=== PATIENT | female | born 1975 | race Caucasian/White ===

== ENCOUNTER 2018-08-13 14:53 | Emergency (ER) | payer SELFPAY ==
[~2018-08-13] VITALS: Ht 157.5 cm; Wt 108.0 kg
[~2018-08-13 14:53] MED LIST: AMOXICILLIN500 MG PO; AMOXICILLIN875 MG OR; ATIVAN0.5 MG PO; BACTRIM DS1 TAB PO; CIPRO500 MG OR; CLINDAMYCIN150 MG PO; DARVOCET N-100100 - OR; DOXYCYCL HYC100 M4 PO; FLEXERIL OR; LORTAB 10 PO; MACRODANTIN100 MG PO; METHADONE10 M1 OR; METHADONE10 MG/5 ML PO; MOTRIN400 MG OR; NAPROSYN500 MG OR; NAPROSYN500 MG PO; NO HOME MEDS; OMEPRAZOLE40 MG PO; SOMA350 MG OR; TESSALON PER100 MG PO; ULTRAM50 M1 PO; ULTRAM50 MG OR; ZPAK PO
[2018-08-13 15:44] LABS: URINE BILIRUBIN - DIPSTICK NEGATIVE (NEGATIVE); URINE BLOOD DIPSTICK LARGE (NEGATIVE); URINE GLUCOSE - DIPSTICK NEGATIVE (NEGATIVE); URINE KETONE TRACE mg/dL (NEGATIVE); URINE PROTEIN - DIPSTICK 100 mg/dL (NEG-TRACE); URINE SPECIFIC GRAVITY >=1.030
[2018-08-13 15:49] LABS: URINE CLARITY CLOUDY; URINE COLOR DK. YELLOW; URINE LEUK ESTERASE MODERATE (NEGATIVE); URINE NITRITE - DIPSTICK POSITIVE (Negative)
[2018-08-13] MEDS ORDERED: CIPROFLOXACN500 MG PO (15:52)
[2018-08-13] MEDS ORDERED: TORADOL PO (15:52)
[2018-08-13 16:08] VITALS: BP 107/71
[2018-08-13 16:08] LABS: URINE RBC TNTC RBC/hpf (0-5); URINE WBC TNTC WBC/hpf (0-5)
[2018-08-13 16:09] LABS: URINE BACTERIA MODERATE hpf; URINE SQUAMOUS EPITHELIAL CELL MODERATE EPI/hpf (0-FEW)
== END 2018-08-13 16:08 | disposition home or self-care (01) | DRG 690 ==
LOC: ED 14:53
PROVIDERS: Emergency Medicine
DX: N39.0 Urinary tract infection, site not specified (principal); F17.200 Nicotine dependence, unspecified, uncomplicated; B96.20 Unspecified Escherichia coli [E. coli] as the cause of diseases classified elsewhere

== ENCOUNTER 2018-08-14 08:03 | Observation (INO) | payer SELFPAY ==
[~2018-08-14] VITALS: Ht 157.5 cm; Wt 72.3 kg
[~2018-08-14 08:03] MED LIST changes: +CIPROFLOXACN500 MG PO; +TORADOL PO
[2018-08-14 09:14] LABS: HEMATOCRIT 37.2 % (37.0-47.0); HEMOGLOBIN 12.4 g/dl (12.0-16.0); IMMATURE GRANULOCYTES 0.6 % (0.0-5.0); MEAN CELL VOLUME 88.4 fL CALC (80.0-100.0); MEAN CORPUSCULAR HGB 29.5 pG CALC (26.0-32.0); MEAN CORPUSCULAR HGB CONC 33.3 g/L CALC (32.0-36.0); NEUT# 9.01 thou/uL (2.00-7.15); RED BLOOD COUNT 4.21 mill/uL (4.20-5.60); RED CELL DISTRI WIDTH 12.8 % (11.5-15.5)
[2018-08-14 09:25] LABS: ALKALINE PHOSPHATASE 106 u/l (38-126); ANION GAP 12 (6-22 (CALC)); BILIRUBIN, TOTAL 0.3 mg/dL (0.0-1.4); BUN 6 mg/dL (7-17); BUN/CREATININE RATIO 6 (12-20 (CALC)); CARBON DIOXIDE 27 mmol/l (22-30); CHLORIDE 99 mmol/l (95-108); CREATININE 0.9 mg/dL (0.5-1.0); GFR > 60 ML/MIN (>=60 (CALC)); GFR FOR AFR.AMER. > 60 ML/MIN (>=60 (CALC)); POTASSIUM 3.4 mmol/l (3.5-5.1); SGOT/AST 22 u/l (14-36); SGPT/ALT 29 u/l (9-52); SODIUM 134 mmol/l (137-146); TOTAL PROTEIN 6.1 g/dL (6.3-8.2)
[2018-08-14 09:29] LABS: ALBUMIN 3.1 g/dL (3.2-5.0)
[2018-08-14 11:29] LABS: URINE BILIRUBIN - DIPSTICK NEGATIVE (NEGATIVE); URINE BLOOD DIPSTICK MODERATE (NEGATIVE); URINE COLOR YELLOW; URINE GLUCOSE - DIPSTICK NEGATIVE (NEGATIVE); URINE KETONE NEGATIVE (NEGATIVE); URINE NITRITE - DIPSTICK NEGATIVE (Negative); URINE PH 5.5 (4.5-8.0); URINE PROTEIN - DIPSTICK 30 mg/dL (NEG-TRACE)
[2018-08-14 11:30] LABS: URINE CLARITY TURBID; URINE LEUK ESTERASE SMALL (NEGATIVE)
[2018-08-14 11:32] LABS: COCAINE NEGATIVE (NEGATIVE); TETRAHYDROCANNABIONOL NEGATIVE (NEGATIVE)
[2018-08-14 11:33] LABS: BARBITURATES NEGATIVE (NEGATIVE); METHADONE NEGATIVE (NEGATIVE); OXCYCODONE NEGATIVE (NEGATIVE); TRICYLIC ANTIDEPRESSANTS NEGATIVE (NEGATIVE)
[2018-08-14 11:42] LABS: URINE BACTERIA FEW hpf; URINE RBC 25-50 RBC/hpf (0-5); URINE SQUAMOUS EPITHELIAL CELL FEW EPI/hpf (0-FEW)
[2018-08-14 14:53] VITALS: BP 116/65
[2018-08-14 16:09] VITALS: BP 103/57
[2018-08-14 19:57] VITALS: BP 93/51
[2018-08-15 05:14] VITALS: BP 112/74
[2018-08-15 05:55] LABS: HEMATOCRIT 33.4 % (37.0-47.0); HEMOGLOBIN 10.8 g/dl (12.0-16.0); IMMATURE GRANULOCYTES 0.6 % (0.0-5.0); MEAN CORPUSCULAR HGB 29.4 pG CALC (26.0-32.0); MEAN CORPUSCULAR HGB CONC 32.3 g/L CALC (32.0-36.0); NEUT# 5.11 thou/uL (2.00-7.15); RED BLOOD COUNT 3.67 mill/uL (4.20-5.60); RED CELL DISTRI WIDTH 13.1 % (11.5-15.5)
[2018-08-15 06:20] LABS: ANION GAP 11 (6-22 (CALC)); BUN 6 mg/dL (7-17); BUN/CREATININE RATIO 9 (12-20 (CALC)); CARBON DIOXIDE 26 mmol/l (22-30); CHLORIDE 108 mmol/l (95-108); CREATININE 0.7 mg/dL (0.5-1.0); GFR > 60 ML/MIN (>=60 (CALC)); GFR FOR AFR.AMER. > 60 ML/MIN (>=60 (CALC)); MAGNESIUM 1.9 mg/dL (1.6-2.3); POTASSIUM 3.7 mmol/l (3.5-5.1); SODIUM 141 mmol/l (137-146)
[2018-08-15 08:15] VITALS: BP 105/70
[2018-08-15 15:25] VITALS: BP 127/82
[2018-08-15 20:01] VITALS: BP 127/86
[2018-08-16 04:00] VITALS: BP 114/76
[2018-08-16 07:56] VITALS: BP 100/71
[2018-08-16] MEDS ORDERED: CIPROFLOXACN500 MG PO (11:17)
== END 2018-08-16 12:30 | disposition home or self-care (01) | DRG 690 ==
LOC: ED 08:03 → ED-I 13:53 → ED 14:06 → MS2 14:07
PROVIDERS: Emergency Medicine; Nurse Practitioner Family; ADMIT Internal Medicine; ATTEND Internal Medicine
DX: N12 Tubulo-interstitial nephritis, not specified as acute or chronic (principal); E87.1 Hypo-osmolality and hyponatremia; F41.9 Anxiety disorder, unspecified; F17.210 Nicotine dependence, cigarettes, uncomplicated; E87.6 Hypokalemia; M54.5 Low back pain; R93.7 Abnormal findings on diagnostic imaging of other parts of musculoskeletal system; B96.20 Unspecified Escherichia coli [E. coli] as the cause of diseases classified elsewhere; Z85.41 Personal history of malignant neoplasm of cervix uteri; Z91.14 Patient's other noncompliance with medication regimen; Z90.710 Acquired absence of both cervix and uterus; Z98.1 Arthrodesis status
CPT/HCPCS: G0378; J0692